=== PATIENT | male | born 1985 | race Caucasian/White ===

== ENCOUNTER → 2018-07-06 10:02 | Outpatient (CLI) | payer OTHER, SELFPAY | PROVIDERS: PCP Family Medicine; Visit Provider Physician Assistant | DX: R21 Rash and other nonspecific skin eruption (principal) | CPT/HCPCS: 87070; 87205; 87252 ==

== ENCOUNTER 2018-11-04 06:44 | Day surgery (SDC) | payer OTHER, SELFPAY ==
[2018-10-26 08:12] VITALS: BMI 24.1
[2018-11-04] VITALS (11 sets, daily range): BP systolic 113–125; BP diastolic 65–87; PULSE 71–94; RESP 9–24; TEMP 36.2–36.3; O2SAT 95–100; BMI 22.8
[2018-11-04] MEDS: LACTATED RINGERS 1,000 ML 42 ML IV ×2 (07:19→10:31)
--- NOTE | 2018-11-04 08:02 | PM.HP.1 ---
History of Present Illness Date Patient Seen: 11/04/18 Time Patient Seen: 08:02 Chief complaint: [id number] Narrative: Patient here for bilateral inguinal hernia repair. Patient History Medical History Shingles (Acute ~06/2018) Bilateral inguinal hernia without obstruction or gangrene (Chronic) Social History (Updated 09/29/18 @ 13:34 by Claritza Connor RN) marital status: household members: spouse and family Smoking Status: Current every day smoker alcohol intake: current substance use type: does not use Family & Social History Social History: household members spouse,family Tobacco & Substance use: Tobacco type cigarettes,smokeless tobacco Smoking Status Current every day smoker alcohol intake current Substance Use Type does not use Meds Home Medications Medication Instructions Recorded Confirmed Type cetirizine [Aller-Charla] 10 mg PO DAILY 11/04/18 11/04/18 History multivitamin 1 cap PO DAILY 11/04/18 11/04/18 History Allergies Allergy/AdvReac Type Severity Reaction Status Date / Time No Known Drug Allergies Allergy Verified 11/04/18 07:06 Review of Systems Review of Systems All systems reviewed & are unremarkable except as noted in HPI and below Exam Vital Signs (past 8 hours): - 11/04/18 07:17 Temperature 97.2 F L Pulse Rate 94 H Respiratory Rate 16 Blood Pressure 121/73 Pulse Oximetry 100 Oxygen Delivery Method Room Air Narrative Exam Narrative: Operative no apparent distress. Lungs are clear to auscultation no rales rhonchi heart regular rate and rhythm without murmur gallop. Abdomen is scaphoid soft nontender without masses. Reducible bilateral inguinal hernias. No skin rashes. Assessment & Plan Assessment & Plan narrative: Patient for bilateral inguinal hernia Brandon understands the risks and benefits.
--- NOTE | 2018-11-04 08:04 | PM.PREOP ---
Pre-operative Note Interval Note History & Physical reviewed/Exam performed by Physician: Yes Changes to H&P: No
[2018-11-04] MEDS: CEFAZOLIN 2 GM/100 ML FROZ.PIGGY IV (08:06)
--- NOTE | 2018-11-04 08:32 | SUR.OPER ---
Supine on padded OR bed, head on pillow, arms secured on padded arm boards at <90 degrees abduction, legs uncrossed, safety belt at thigh, tape over blanket over lower legs.
[2018-11-04] MEDS: BUPIVACAINE 0.5% (PF) VIAL 30 ML INJ (08:39)
[2018-11-04] MEDS: ACETAMINOPHEN IV 1,000 MG/100 ML VIAL 400 MG IV (09:18)
[2018-11-04] MEDS: fentaNYL 100 MCG/2 ML INJ 50 MCG IV ×3 (10:13→10:29)
--- NOTE | 2018-11-04 10:16 | PM.OP.1 ---
Operative Date/Time/Diagnoses Date of procedure: 11/04/18 Time of procedure: 10:16 Pre-op diagnosis: bilateral inguinal hernia reducible Post-op diagnosis: same (direct hernias bilaterally) Procedure & Clinicians Procedure: Bilateral repair of inguinal hernias with plug and patch technique Same procedure as scheduled: Yes Indications: Symptomatic bilateral inguinal hernias Surgeon: Brennon Navarro Click Yes if Unassisted: Yes Anesthesia Type: General Operative Notes Findings: Direct hernias Closure Type: primary Specimen(s): none sent Prosthetic devices, grafts, tissues, transplants, or devices: Mesh Estimated Blood Loss (mL): 10 Blood products transfused: none Procedure in detail: The patient is placed supine on the operating table underwent general LMA anesthesia. He was prepped and draped in the usual fashion. Local anesthetic was infiltrated and a transverse incision made overlying the internal ring in the right lower quadrant. This carried down level of the external oblique. The external oblique was opened parallel with its fibers through the external ring. Cord structures were elevated. Cremaster was opened proximally and a search was made for an indirect sac. None was found. The floor however was attenuated and consistent with the direct hernia. I opened the floor and reduce the fat and placed a large plug in the defect. I then sutured the transversalis under side medially to the ileopubic tract laterally incorporating a portion of the mesh so it would not move. This was done to close the floor. I then sutured to the edge of the inguinal ligament to the cut edge of the transversalis medially with interrupted Ethibond sutures. A patch was then placed across the floor. Was tacked at the pubic tubercle, of the posterior lamella the anterior rectus sheath, the ileo inguinal ligament, and superior and lateral the cord. The external oblique was closed with a running 3 0 Vicryl. The subcu was closed with interrupted 3 Vicryl and skin was closed with a running 4 0 Vicryl subcuticular stitch. Attention was turned to the opposite side. A mirror incision was made. An identical operation was performed except on the left side I used a medium plug to place under the floor and closed the floor in a single layered closure from transversalis to the ileopubic tract and the edge of the inguinal ligament. Other than that the operation was identical. Closure was in an identical fashion. Local anesthetic was infiltrated on both sides at completion and says Mastisol and Steri-Strips were used along with Telfa and Tegaderm. The patient was awakened and taken recovery area in good condition. There were no apparent complications. Complications: none Condition: stable Disposition: PACU Plan for aftercare: Follow-up in the office
[2018-11-04] MEDS: OXYCODONE IR 5 MG TABLET PO (10:37)
== END 2018-11-04 11:29 | disposition home or self-care (01) ==
PROVIDERS: PCP Family Medicine; Visit Provider Specialist
PROC: (CPT 49505; principal; 2018-11-04 07:45)
DX: K40.20 Bilateral inguinal hernia, without obstruction or gangrene, not specified as recurrent (principal); F17.210 Nicotine dependence, cigarettes, uncomplicated
CPT/HCPCS: 49505; C1781; J0131; J0690; J1100; J2250; J2405; J3010